=== PATIENT | female | born 1960 | race American Indian/Alaskan Native ===

== ENCOUNTER 2019-10-25 09:27 | Outpatient (CLI) | payer BC ==
--- NOTE | 2019-10-25 12:21 | Magnetic Resonance Report ---
Bilateral breast MR with contrast. History: Recently diagnosed right breast malignancy. Comparison: 09/11/2019 and 09/22/2019 [place] ultrasound imaging (performed at an outside facility). Technique: Multiplanar multisequence MR images of the breast were obtained before and after the intra venous administration of intravenous contrast. Post processing analysis and review was performed on a separate computer workstation. Findings: There is moderate background parenchymal enhancement within both breasts. RIGHT BREAST: Lobulated homogeneously enhancing mass in the right breast at 12:00 position at middle depth measures up to 1.3 x 1.3 x 1.3 cm. This jones the site of known biopsy-proven malignancy with a ssociated biopsy marker noted within the mass. No additional findings to suggest further extent of ma lignancy within the right breast. Located more superficially slightly anteriorly to the aforementione d mass is an area of intrinsic a bright T1 signal and fat like signal which appears most consistent w ith postbiopsy change. No abnormal enhancement is identified in this region. LEFT BREAST: No enhancing mass, dominant focus, or other abnormal enhancement within the left breast. No abnormal axillary or internal mammary lymph nodes. Impression: Known biopsy-proven malignancy in the right breast at the 12:00 position measures up to 1.3 cm on MRI . No findings to suggest further extent of disease or additional sites of malignancy within either br east. Signer Name: Lukas Swartz MD Signed: 10/25/2019 12:17 PM Workstation Name: [id number]
== END 2019-10-25 09:28 | disposition home or self-care (01) ==
LOC: SPVIMAG 09:27
PROVIDERS: ATTEND Surgery
DX: C50.411 Malignant neoplasm of upper-outer quadrant of right female breast (principal)
CPT/HCPCS: A9577; C8908; 77049

== ENCOUNTER 2019-11-22 06:07 | Day surgery (SDC) | payer SELFPAY ==
--- NOTE | 2019-11-20 10:42 | Anesthesia Consultation ---
Anesthesia Consult and Med Hx Date of service: 11/22/19 - Airway Anesthetic Teeth Evaluation: Dentures (full upper and lower) ROM Head & Neck: Adequate Mental/Hyoid Distance: Adequate Mallampati Class: Class II Intubation Access Assessment: Probably Good - Pulmonary Exam CTA: Yes - Cardiac Exam Cardiac Exam: RRR - Pre-Operative Health Status ASA Pre-Surgery Classification: ASA3 Proposed Anesthetic Plan: General Nerve Block: PECs - Pulmonary Hx Smoking: Yes Hx Respiratory Symptoms: Yes (chronic NEGRETE) COPD: Yes (resting SpO2 97-100% at home per patient; chornic steroids) Home Oxygen Therapy: No (has equipment at home but has not used yet) - Cardiovascular System Hx Hypertension: Yes Hx Heart Attack/AMI: No (>4mets functional capacity, normal cardaic studies 2017 per PCP notes) Hx Percutaneous Transluminal Coronary Angioplasty (PTCA): No Hx Cardia Arrhythmia: No - Central Nervous System CVA: No Hx Psychiatric Problems: Yes (depression) - Endocrine Hx Renal Disease: Yes (CKD; tool clerk 1.7 on outpatient labs 11/2019) Hx Liver Disease: No Hx Insulin Dependent Diabetes: No Hx Non-Insulin Dependent Diabetes: No Hx Thyroid Disease: No - Hematic Hx Anemia: No (H/H 13.8/41 on outpatient labs 11/2019) - Other Systems Hx Alcohol Use: Yes (hx ETOH abuse; now 1-2 drinks most days) Hx Cancer: Yes (breast ca) Hx Obesity: No - Additional Comments Anesthesia Medical History Comments: Hx awareness under anesthesia during c- section under [place] in . No anestetics since then. PCP and pulmonology evals on chart. Patient on prednisone x3 months for COPD exacerbation (symptoms now resolved). Dose recently decreased to 10mg qDay. Instructed to take usual AM dose day of surgery. Discussed increased risk of perioperative pulmonary complications given severity of COPD. Patient verbalized understanding and gave consent for anesthesia.
[~2019-11-22 06:07] MED LIST: ACETAMINOPHEN 500 MG TAB PO SCH; GABAPENTIN 300 MG CAP PO NR; LACTATED RINGERS 1,000 ML IV SCH; MIDAZOLAM 2 MG/2 ML INJ IV NR; SCOPOLAMINE TRANSDERMAL PATCH 72 HR TD NR; ceFAZolin/Water 2 GM/20 ML 2 GM/20 ML SYRINGE IV NR
[2019-11-22] MEDS ORDERED: BACTERIOSTATIC SODIUM CHLORIDE 0.9% 30 ML VIAL INFILTRATI ONE (06:38)
[2019-11-22] MEDS ORDERED: BUPIVACAINE-EPINEPHRINE/PF 0.5%-1:200,000 (10 ML) VIAL INFILTRATI ONE (07:28)
[2019-11-22] MEDS ORDERED: dexAMETHasone 4 MG/ML VIAL ONE (07:28)
[2019-11-22] MEDS ORDERED: ONDANSETRON 4 MG/2 ML INJ ONE (07:31)
[2019-11-22] MEDS ORDERED: LIDOCAINE MPF (2%) 20 MG/1 ML VIAL 5 ML ONE (07:31)
[2019-11-22] MEDS ORDERED: dexAMETHasone 20 MG/5 ML VIAL ONE (07:31)
[2019-11-22] MEDS ORDERED: HYDROmorphone 1 MG/1 ML INJ ONE (07:31)
[2019-11-22] MEDS ORDERED: ROCURONIUM 50 MG/5 ML INJ IV ONE (07:31)
[2019-11-22] MEDS ORDERED: propofoL 200 MG/20 ML VIAL IV ONE (07:32)
[2019-11-22] MEDS: fentaNYL 100 MCG/2 ML INJ IV PRN ×2 (08:06→08:28)
[2019-11-22] MEDS ORDERED: SODIUM CHLORIDE P/F VIAL 10 ML 10 ML ONE (09:18)
[2019-11-22] MEDS ORDERED: WATER FOR IRRIG STERILE 1,500 ML BOTTLE IR ONE (10:00)
[2019-11-22] MEDS ORDERED: LACTATED RINGERS 1,000 ML ONE (10:45)
[2019-11-22] MEDS ORDERED: GLYCOPYRROLATE 0.4 MG/2 ML INJ ONE (11:56)
[2019-11-22] MEDS ORDERED: NEOSTIGMINE 10MG/10 ML INJ MDV ONE (11:56)
--- NOTE | 2019-11-22 12:18 | Operative Report ---
Operative Report Operative Report: Operative Report: November 15, 2019 Preoperative diagnosis: Right breast cancer of the upper outer quadrant Postoperative diagnosis: Same Procedure: Right partial mastectomy of the upper outer quadrant and SLNB Surgeon: Elizabeth Bazan MD Masking Machine Operator: Rubia Colunga MD Anesthesia: General Findings: right partial mastectomy with mass and clip present within radiograph specimen; x4 SLNs Complications: None EBL: 50 cc Disposition: PACU in good condition Indications for operative procedure: This is a 59 year old lady with newly diagnosed right breast cancer of the upper outer quadrant, Stage I [id number] ER/Her-2 positive grade 1 (IDCA 12:00 position 5-7 cm FN). Recommendations are to proceed with breast conservation with right partial mastectomy with SLN. She understands the role of adjuvant radiation therapy and will repeat receptors; she understands the role of adjuvant chemotherapy. She wished to proceed with the above procedure. Procedure in detail: Anesthesia placed right pectoral block. Patient was then taken to the operating room. Gen. anesthesia was administered. The right nipple was injected with radioisotope. Right breast and axilla were prepped and draped in the normal sterile operative fashion. Gamma probe was inserted into the axilla. The area of hot spot was identified. Ultrasound was used to curry the area of incision for the right partial mastectomy at location of known malignancy at 12:00 position 5-7 cm FN. Attention was then taken towards the right axilla. A right axillary incision was made with a 15 blade knife with dissection taken down to the subcutaneous tissues. The axillary fascia was opened with the Bovie cautery. 4 SLNs were identified that were dissected free using the bovie cautery. All remaining counts were less than 10% of the highest count. Lymph nodes were sent to pathology for permanent processing. Hemostasis was obtained in the right axillary cavity. Axillary cavity was appropriately irrigated and suctioned. Hemostasis was noted. Axillary fascia was approximated and closed using interrupted 3-0 Vicryl and the skin brought together and closed using a running 4-0 Monocryl followed by skin affix. Attention was then taken towards the right breast. Ultrasound was used as well at location of known malignancy at 12:00 position 5-7 cm FN. A 12:00 breast incision was made with a 15 blade knife and dissection taken down to subcutaneous tissues. First began raising of the superior flap with dissection taken superiorly past the known malignancy and then dissection taken down to the pectoralis muscle posteriorly, followed by raising of the inferior flap, medial flap and lateral flap with all flaps taken past the area of known malignancy with appropriate margins that were marked prior to incision using the ultrasound and then dissection taken down to the pectoralis muscle. The breast area of concern was appropriately removed posteriorly from the pectoralis muscle with the aid of the Bovie cautery. The mass was not directly encountered. Specimen was marked and then sent to pathology and radiology; radiograph specimen with mass and clip present. Breast cavity was irrigated and hemostasis was obtained. Then proceeded with complex breast closure with mobilization of deep breast tissues to ensure cosmesis. The posterior deep breast tissues were approximated and closed using interrupted 3-0 Vicryl. The subcutaneous tissues were approximated and closed using interrupted 3-0 Vicryl followed by closing of the skin with a running 4-0 Monocryl and skin affix. The patient tolerated surgery very well and she was awaken from anesthesia without any complication and transported to PACU in good condition.
--- NOTE | 2019-11-22 12:21 | Short Stay Summary ---
Short Stay Documentation Date of service: 11/22/19 - History H&P: obtained from office - Allergies and Medications Current Medications: Allergies amlodipine [From [facility]] Allergy (Verified 11/15/19 16:25) Swelling Home Medications Medication Instructions Recorded Confirmed Last Taken Type Albuterol Sulfate [Proventil Hfa] 2 puff IH Q4H PRN 11/15/19 11/22/19 11/22/19 00:00 History Furosemide [Lasix TAB] 40 mg PO QDAY 11/15/19 11/15/19 11/21/19 History Hydralazine HCl 50 mg PO TID 11/15/19 11/15/19 11/21/19 History Ipratropium/Albuterol Sulfate 3 ml IH PRN PRN 11/15/19 11/22/19 11/15/19 History [DUONEB *Not for PRN Use*] Levocetirizine Dihydrochloride 5 mg PO DAILY 11/15/19 11/15/19 11/21/19 History [Xyzal] Metoprolol [Lopressor] 100 mg PO DAILY 11/15/19 11/22/19 11/21/19 19:30 History NIFEdipine [Adalat cc] 90 mg PO DAILY 11/15/19 11/22/19 11/22/19 05:15 History Olmesartan Medoxomil [Benicar] 40 mg PO DAILY 11/15/19 11/15/19 11/21/19 History Potassium Chloride [K-Dur] 10 meq PO QDAY 11/15/19 11/15/19 11/21/19 History predniSONE [Deltasone] 10 mg PO QDAY 11/15/19 11/15/19 11/21/19 History Fluticasone/Umeclidin/Vilanter 1 puff IH QDAY 11/22/19 11/22/19 11/22/19 05:15 History [Trelegy Ellipta 100-62.5-25] oxyCODONE /ACETAMINOPHEN [Percocet 1 tab PO Q6HR PRN #20 tablet 11/22/19 Unknown Rx 5/325] Active Medications Acetaminophen (Tylenol) 1,000 mg PO PREOP ABDIRAHMAN Stop: 11/22/19 22:00 Last Admin: 11/22/19 06:55 Dose: 1,000 mg Documented by: Fentanyl (Sublimaze) 100 mcg IV ONCE PRN PRN Reason: sedation for nerve block Stop: 11/22/19 22:00 Last Admin: 11/22/19 08:28 Dose: 50 mcg Documented by: Gabapentin (Gabapentin) 300 mg PO PREOP NR Stop: 11/22/19 22:00 Last Admin: 11/22/19 06:55 Dose: 300 mg Documented by: Cefazolin Sodium (Ancef/Sterile Water 2 Gm/20 Ml) 2 gm in 20 mls @ 80 mls/hr IV PREOP NR; Protocol Stop: 11/22/19 23:00 Lactated Ringer's (Lactated Ringers) 1,000 mls @ 100 mls/hr IV DIRECT ABDIRAHMAN Stop: 11/22/19 23:59 Last Admin: 11/22/19 07:05 Dose: 100 mls/hr Documented by: Midazolam HCl (Versed) 2 mg IV PREOP NR Stop: 11/22/19 22:00 Last Admin: 11/22/19 08:06 Dose: 2 mg Documented by: Scopolamine (Transderm-Scop) 1 each TD PREOP NR Stop: 11/22/19 23:00 Last Admin: 11/22/19 06:44 Dose: 1 each Documented by: - Brief post op/procedure progress note Date of procedure: 11/22/19 Pre-op diagnosis: Right breast cancer UOQ Post-op diagnosis: same Procedure: Right partial mastectomy with SLNB Anesthesia: GETA Findings: right breast mass and clip present; x4 slns Surgeon: SKYLAR MCKOY Estimated blood loss: other (50 cc) Pathology: list (right partial mastectomy; x4 slns) Specimen disposition: to lab Condition: stable - Disposition Condition at discharge: Good Disposition: DC-01 TO HOME OR SELFCARE Short Stay Discharge Plan Activity: other (no heavy lifting) Diet: regular Wound: keep clean and dry (wear breast binder; may shower in 48 hours; no baths or pools) Follow up with: SKYLAR MCKOY MD [Staff Physician] - 7 Days Prescriptions: oxyCODONE /ACETAMINOPHEN [Percocet 5/325] 1 tab PO Q6HR PRN #20 tablet PRN Reason: Pain
[2019-11-22 13:28] VITALS: BP 123/72
--- NOTE | 2019-11-22 13:52 | Post Anesthesia Evaluation ---
- Post Anesthesia Evaluation Patient Participated: Yes Airway Patent: Yes Stable Respiratory Function: Yes Nausea/Vomiting: No Temp > 96.8F: Yes Pain Manageable: Yes Adequeate Hydration: Yes Anesthesia Complications: No
--- NOTE | 2019-11-22 13:52 | Anesthesia Day of Surgery ---
Anesthesia Day of Surgery - Day of Surgery Patient Examined: Yes Patient H&P Reviewed: Yes Patient is NPO: Yes
--- NOTE | 2019-11-23 12:25 | Mammography Report ---
BREAST SPECIMEN RADIOGRAPH HISTORY: Right lumpectomy FINDINGS/IMPRESSION: The submitted radiograph or radiographs demonstrate(s) the presence of a biopsy marker contained with in an irregular soft tissue mass. A separate site of clustered calcifications is also included within the specimen. Signer Name: Shaylee Mercedes MD Signed: 11/23/2019 12:21 PM Workstation Name: [id number]
== END 2019-11-22 14:04 | disposition home or self-care (01) ==
LOC: OR 06:07
PROVIDERS: ATTEND Surgery
DX: C50.411 Malignant neoplasm of upper-outer quadrant of right female breast (principal); I89.8 Other specified noninfective disorders of lymphatic vessels and lymph nodes; Z20.828 Contact with and (suspected) exposure to other viral communicable diseases; F17.210 Nicotine dependence, cigarettes, uncomplicated; D53.9 Nutritional anemia, unspecified; F10.10 Alcohol abuse, uncomplicated; D72.829 Elevated white blood cell count, unspecified; J44.9 Chronic obstructive pulmonary disease, unspecified; I12.9 Hypertensive chronic kidney disease with stage 1 through stage 4 chronic kidney disease, or unspecified chronic kidney disease; N18.9 Chronic kidney disease, unspecified; Z72.89 Other problems related to lifestyle; Z88.8 Allergy status to other drugs, medicaments and biological substances; Z79.899 Other long term (current) drug therapy; Z98.891 History of uterine scar from previous surgery; Z98.890 Other specified postprocedural states; F32.9 Major depressive disorder, single episode, unspecified
CPT/HCPCS: 19301; 38525; 38792; 76098; 78800; 88305; 88307; 88341; 88342; 88368; A9541; J0690; J1100; J1170; J2250; J2405; J2704; J2710; J3010; J7120; U0003; 64450